=== PATIENT | female | born 1950 | race Caucasian/White ===

== ENCOUNTER 2021-02-23 14:54 | Emergency (ER) | payer OTHER ==
[~2021-02-23] VITALS: Ht 165.1 cm; Wt 100.0 kg
--- NOTE | 2021-02-23 15:04 | NUR ---
REPORT TO BOYD SOLARES.
--- NOTE | 2021-02-23 15:13 | NUR ---
MANI SCHREIBER FROM [place] FOR GL[facility]. PT SCRAPED RT LEG ON ESCALATOR, RT POSTERIOR HEAD HEMATOMA AND LT JACOBS HEMATOMA. PT DENIES BLOOD THINNER USE. PT DENIES MIDLINE CERVICAL TENDERNESS, NO OTHER TRAUMA NOTED, DENIES LOC. PT A&O, RESPS EVEN AND UNLABORED, VSS, NADN.
[2021-02-23] MEDS ORDERED: OXYcodone/APAP 5/325MG TABLET PO ONE (15:30)
[2021-02-23] MEDS ORDERED: OXYcodone/APAP 5/325MG TABLET ONE (15:31)
--- NOTE | 2021-02-23 15:34 | NUR ---
pt in radiology, to be medicated upon return.
[2021-02-23] MEDS ORDERED: METFORMIN PO (15:51)
[2021-02-23] MEDS ORDERED: ATOR20TA37 PO (15:51)
[2021-02-23] MEDS ORDERED: LISINOPRIL PO (15:51)
--- NOTE | 2021-02-23 16:00 | NUR ---
pt medicated per emar, tolerated well. bp and spo2 monitors in place. awaiting radiology results and dispo.
--- NOTE | 2021-02-23 17:00 | NUR ---
lower ext CT complete, awaiting read and dispo.
--- NOTE | 2021-02-23 17:40 | NUR ---
pt reports pain improved s/p pain med. pt is a&o, resps even and unlabored, mandyn.
--- NOTE | 2021-02-23 17:59 | NUR ---
THIS FLOAT RN AT BEDSIDE TO DC FOR PRIMARY RN, ORTIZ. PT AND FRIEND VERBALIZED UNDERSTANDING TO DC INSTRUCTIONS. WHEELED TO CHECKOUT FOR COMFORT. PT AMBULATORY WITH SLOW, STEADY GAIT. VSS
[2021-02-23 18:01] VITALS: BP 132/84
== END 2021-02-23 18:04 | disposition home or self-care (01) ==
LOC: ED 16:12
DX: S80.12XA Contusion of left lower leg, initial encounter (principal); S09.90XA Unspecified injury of head, initial encounter; W18.00XA Striking against unspecified object with subsequent fall, initial encounter; Y93.89 Activity, other specified; Y92.512 Supermarket, store or market as the place of occurrence of the external cause; Y99.8 Other external cause status
CPT/HCPCS: 70450; 99285